=== PATIENT | male | born 1955 | race Caucasian/White ===

== ENCOUNTER 2024-02-26 00:14 | Inpatient (IN) | payer OTHER ==
[~2024-02-26] VITALS: Ht 177.8 cm; Wt 68.0 kg
[~2024-02-26 00:14] MED LIST: ATOR-1 GT; DOXY100T2 GT; ECO81 GT; ENOX40SY SUBCUT; LEVE500T9 GT; LOPE2CAP GT; NOR10 GT; SER25 GT; VALP250S16 GT
[2024-02-26 00:20] VITALS: BP_SYST 117; PULSE 95; RESP 16; TEMP 97.6; O2SAT 94
[2024-02-26 01:22] LABS: HEMOGLOBIN 14.3 g/dL (14.0-18.0); MEAN CORPUSCULAR VOLUME 89 fL (79.0-98.0); RED CELL DISTRIBUTION WIDTH 15.5 % (9.0-15.0)
[2024-02-26 01:30] LABS: BASOPHILS # (AUTO) 0.1 K/uL (0.0-0.2); BASOPHILS % (AUTO) 0.8 % (0.0-2.0); EOSINOPHILS # (AUTO) 0.2 K/uL (0.0-0.4); EOSINOPHILS % (AUTO) 2.4 % (0.0-4.0); HEMATOCRIT 40.6 % (36-54); LYMPHOCYTES # (AUTO) 1.4 K/uL (1.0-5.5); LYMPHOCYTES % (AUTO) 14.1 % (20.5-51.5); MEAN CORPUSCULAR HEMOGLOBIN 32 pg (27-31); MEAN CORPUSCULAR HGB CONC 35 % (32-36); MONOCYTES # (AUTO) 1.7 K/uL (0.0-1.0); NEUTROPHILS # (AUTO) 6.6 K/uL (1.8-7.7); NEUTROPHILS % (AUTO) 65.7 % (40.0-70.0); PLATELET COUNT (AUTO) 372 K/uL (130-430); RED BLOOD CELL COUNT(AUTO) 4.54 MIL/uL (4.2-6.2)
[2024-02-26 01:33] LABS: ALANINE AMINOTRANSFERASE 30 U/L (12-78); ALBUMIN 2.3 g/dL (3.4-4.8); ANION GAP 7 (5-15); ASPARTATE AMINOTRANSFERASE 28 U/L (10-37); CALCIUM 8.7 mg/dL (8.4-11.0); CARBON DIOXIDE 31 mmol/L (23-29); CHLORIDE 102 mmol/L (98-107); CREATININE 0.71 mg/dL (0.55-1.30); GFR AFRICAN AMERICAN 142 mL/min (>90); GFR NON AFRICAN-AMERICAN 118 mL/min (>90); GLUCOSE 101 mg/dL (74-106); POTASSIUM 4.2 mmol/L (3.5-5.1); PROTHROMBIN TIME 10.4 SECS (9.5-12.5); SODIUM SERUM 140 mmol/L (136-145); TOTAL BILIRUBIN 0.3 mg/dL (0.0-1.0); TOTAL PROTEIN, SERUM 6.4 g/dL (6.4-8.3); UREA NITROGEN, BLOOD 20 mg/dL (8-21)
[2024-02-26 01:36] LABS: BILIRUBIN,DIRECT 0.1 mg/dL (0.0-0.3)
[2024-02-26 03:34] LABS: BILIRUBIN,URINE NEGATIVE (NEGATIVE); BLOOD, URINE NEGATIVE (NEGATIVE); CLARITY/URINE CLEAR (CLEAR); COLOR,URINE YELLOW (YELLOW); GLUCOSE,URINE NEGATIVE (NEGATIVE); KETONES,URINE NEGATIVE (NEGATIVE); LEUKOCYTE ESTERASE ,URINE NEGATIVE (NEGATIVE); NITRITE, URINE NEGATIVE (NEGATIVE); PROTEIN URINE NEGATIVE (NEGATIVE); UROBILINOGEN,URINE 0.2 (0.2-1.0)
[2024-02-26] MEDS: NACL 0.9% 1,000 ML IV SCH (05:25)
[2024-02-26] MEDS ORDERED: LACT-200 GT (05:41)
[2024-02-26] MEDS ORDERED: PROP10TA10 GT (06:06)
[2024-02-26] MEDS ORDERED: MULT-1117 GT (06:06)
[2024-02-26] MEDS ORDERED: LANS30CA53 GT (06:06)
[2024-02-26] MEDS ORDERED: THIA50TA10 GT (06:06)
[2024-02-26] MEDS ORDERED: FOLI-43 GT (06:08)
[2024-02-26] MEDS ORDERED: NALOXONE HCL 0.4 MG/ML AMP (NARCAN) IVP PRN ×2 (08:15)
[2024-02-26] MEDS ORDERED: POTASSIUM CHLORIDE 20 MEQ TABLET.ER PO PRN (08:15)
[2024-02-26] MEDS ORDERED: LORazepam 2 MG/ML VIAL IVP PRN (08:15)
[2024-02-26] MEDS ORDERED: MORPHINE 2 MG/ML INJ. SYRINGE IVP PRN ×2 (08:15)
[2024-02-26] MEDS ORDERED: ONDANSETRON HCL 4 MG/2 ML VIAL IVP PRN (08:15)
[2024-02-26] MEDS ORDERED: ZOLPIDEM TARTRATE 5 MG TABLET PO PRN (08:15)
[2024-02-26] MEDS ORDERED: MUPIROCIN 2% TOPICAL OINTMENT 22 GM NS PRN (08:15)
[2024-02-26] MEDS ORDERED: MAGNESIUM SULFATE 50 ML IV PRN (08:15)
[2024-02-26] MEDS ORDERED: DOCUSATE SODIUM 100 MG CAPSULE PO PRN (08:15)
[2024-02-26] MEDS ORDERED: ACETAMINOPHEN 500 MG TABLET PO PRN ×2 (08:30)
[2024-02-26] MEDS: VALPROIC ACID ORAL SYRUP 250 MG/5 ML UDC GT SCH (08:39)
[2024-02-26] MEDS: LACTULOSE 20 GM/30 ML UDC PO SCH (09:53)
[2024-02-26] MEDS: ASPIRIN 81 MG TABLET(ECOTRIN) GT SCH (09:53)
[2024-02-26] MEDS: LANSOPRAZOLE 30 MG CAPSULE.DR GT SCH (09:54)
[2024-02-26] MEDS: levETIRAcetam 500 MG TABLET GT SCH (09:54)
[2024-02-26] MEDS: FOLIC ACID 1 MG TABLET GT SCH (09:54)
[2024-02-26] MEDS: MULTIVITAMINS TAB 1 TABLET GT SCH (09:54)
[2024-02-26] MEDS: HEPARIN SODIUM,PORCINE 5,000 UNITS/ML VIAL SUBCUT SCH (09:57)
[2024-02-26 11:47] VITALS: BP_SYST 141; PULSE 106; RESP 18; TEMP 98.1; O2SAT 96
[2024-02-26 12:26] VITALS: BP_SYST 141; PULSE 106; RESP 20; TEMP 98.1; O2SAT 95
[2024-02-26 16:08] VITALS: BP_SYST 133; PULSE 107; RESP 20; TEMP 97.5; O2SAT 95
[2024-02-26 20:00] VITALS: BP_SYST 142; PULSE 111; RESP 18; TEMP 99.5; O2SAT 94
[2024-02-26] MEDS: ATORVASTATIN 20 MG TABLET GT SCH (21:35)
[2024-02-26] MEDS: QUEtiapine FUMARATE 25 MG TABLET GT SCH (21:36)
[2024-02-26 23:29] VITALS: BP_SYST 146; PULSE 111; RESP 18; TEMP 99.3; O2SAT 95
[2024-02-27 05:32] LABS: BASOPHILS % (AUTO) 0.3 % (0.0-2.0); EOSINOPHILS # (AUTO) 0.1 K/uL (0.0-0.4); EOSINOPHILS % (AUTO) 0.5 % (0.0-4.0); HEMATOCRIT 40.7 % (36-54); LYMPHOCYTES # (AUTO) 1.4 K/uL (1.0-5.5); LYMPHOCYTES % (AUTO) 10.1 % (20.5-51.5); MEAN CORPUSCULAR HEMOGLOBIN 31 pg (27-31); MEAN CORPUSCULAR HGB CONC 34 % (32-36); MEAN CORPUSCULAR VOLUME 91 fL (79.0-98.0); MONOCYTES # (AUTO) 1.8 K/uL (0.0-1.0); MONOCYTES % (AUTO) 13.7 % (1.7-9.3); NEUTROPHILS # (AUTO) 10.1 K/uL (1.8-7.7); NEUTROPHILS % (AUTO) 75.4 % (40.0-70.0); PLATELET COUNT (AUTO) 351 K/uL (130-430); RED CELL DISTRIBUTION WIDTH 15.5 % (9.0-15.0); WHITE BLOOD COUNT (AUTO) 13.4 K/uL (4.8-10.8)
[2024-02-27 05:54] LABS: CREATININE 0.75 mg/dL (0.55-1.30); POTASSIUM 3.9 mmol/L (3.5-5.1)
[2024-02-27 08:00] VITALS: BP_SYST 128; PULSE 117; RESP 18; TEMP 98.8; O2SAT 92
[2024-02-27 12:57] VITALS: BP_SYST 118; PULSE 88; RESP 19; TEMP 98.7; O2SAT 98
[2024-02-27 18:46] VITALS: BP_SYST 122; PULSE 109; RESP 16; TEMP 99.8; O2SAT 97
[2024-02-27 20:00] VITALS: BP_SYST 116; PULSE 115; RESP 20; TEMP 100.8; O2SAT 93
[2024-02-27] MEDS: ACETAMINOPHEN 500 MG TABLET PO PRN (20:14)
[2024-02-27 21:00] VITALS: O2SAT 93
[2024-02-28 01:10] VITALS: BP_SYST 150; BP_SYST 159; PULSE 103; RESP 16; TEMP 98.2; O2SAT 95
[2024-02-28 05:42] LABS: BASOPHILS % (AUTO) 0.3 % (0.0-2.0); EOSINOPHILS # (AUTO) 0.1 K/uL (0.0-0.4); EOSINOPHILS % (AUTO) 0.5 % (0.0-4.0); HEMATOCRIT 38.3 % (36-54); LYMPHOCYTES # (AUTO) 1.2 K/uL (1.0-5.5); LYMPHOCYTES % (AUTO) 11.7 % (20.5-51.5); MEAN CORPUSCULAR HEMOGLOBIN 31 pg (27-31); MEAN CORPUSCULAR HGB CONC 34 % (32-36); MEAN CORPUSCULAR VOLUME 91 fL (79.0-98.0); MONOCYTES # (AUTO) 1.7 K/uL (0.0-1.0); NEUTROPHILS # (AUTO) 7.1 K/uL (1.8-7.7); NEUTROPHILS % (AUTO) 70.5 % (40.0-70.0); PLATELET COUNT (AUTO) 256 K/uL (130-430); RED CELL DISTRIBUTION WIDTH 15.6 % (9.0-15.0); WHITE BLOOD COUNT (AUTO) 10.1 K/uL (4.8-10.8)
[2024-02-28 06:05] LABS: CALCIUM 8.6 mg/dL (8.4-11.0); CREATININE 0.58 mg/dL (0.55-1.30); POTASSIUM 3.4 mmol/L (3.5-5.1)
[2024-02-28 07:40] VITALS: BP_SYST 131; PULSE 101; RESP 17; TEMP 99; O2SAT 96
[2024-02-28 09:00] VITALS: O2SAT 96
[2024-02-28] MEDS ORDERED: LEVE1000 PO (09:36)
[2024-02-28 12:40] VITALS: BP_SYST 142; PULSE 102; RESP 18; TEMP 98.8; O2SAT 98
[2024-02-28 16:52] VITALS: BP_SYST 131; PULSE 109; RESP 20; TEMP 97.7; O2SAT 93
[2024-02-28 16:54] VITALS: BP_SYST 135; PULSE 100; RESP 17; TEMP 98.9; O2SAT 96
== END 2024-02-28 17:20 | DRG 100 ==
LOC: SED 00:14 → STU 04:42
PROVIDERS: ADMIT General Practice; ATTEND General Practice
PROC: 4A00X4Z Measurement of Central Nervous Electrical Activity, External Approach (ICD-10-PCS; principal; 2024-02-26)
DX: G40.909 Epilepsy, unspecified, not intractable, without status epilepticus (principal); G93.41 Metabolic encephalopathy; R53.2 Functional quadriplegia; E44.0 Moderate protein-calorie malnutrition; E72.20 Disorder of urea cycle metabolism, unspecified; K76.82 Hepatic encephalopathy; R13.10 Dysphagia, unspecified; G90.9 Disorder of the autonomic nervous system, unspecified; Z87.820 Personal history of traumatic brain injury; Z74.01 Bed confinement status; Z79.899 Other long term (current) drug therapy; Z68.21 Body mass index [BMI] 21.0-21.9, adult
CPT/HCPCS: 36415; 70450-TC; 71045; 76700; 80048; 80076; 80164; 81001; 81003; 82140; 82948; 83037; 83605; 83735; 84484; 85025; 85610; 87040; 87081; 93005; 95816; 99285; G0378; J1644

== ENCOUNTER 2024-03-03 23:54 | Emergency (ER) | payer OTHER ==
[~2024-03-03] VITALS: Ht 180.3 cm; Wt 77.1 kg
[~2024-03-03 23:54] MED LIST changes: +FOLI-43 GT; +LACT-200 GT; +LANS30CA53 GT; +LEVE1000 PO; -LEVE500T9 GT; +MULT-1117 GT; +PROP10TA10 GT; +THIA50TA10 GT
[2024-03-04 00:05] VITALS: BP_SYST 132; PULSE 100; RESP 18; TEMP 98.7; O2SAT 98
[2024-03-04 01:00] LABS: BASOPHILS # (AUTO) 0.1 K/uL (0.0-0.2); BASOPHILS % (AUTO) 0.5 % (0.0-2.0); EOSINOPHILS # (AUTO) 0.1 K/uL (0.0-0.4); EOSINOPHILS % (AUTO) 0.8 % (0.0-4.0); HEMATOCRIT 45.5 % (36-54); HEMOGLOBIN 15.8 g/dL (14.0-18.0); LYMPHOCYTES # (AUTO) 1.2 K/uL (1.0-5.5); LYMPHOCYTES % (AUTO) 12.8 % (20.5-51.5); MEAN CORPUSCULAR HEMOGLOBIN 32 pg (27-31); MEAN CORPUSCULAR HGB CONC 35 % (32-36); MEAN CORPUSCULAR VOLUME 90 fL (79.0-98.0); MONOCYTES # (AUTO) 1.5 K/uL (0.0-1.0); MONOCYTES % (AUTO) 16.4 % (1.7-9.3); NEUTROPHILS # (AUTO) 6.6 K/uL (1.8-7.7); NEUTROPHILS % (AUTO) 69.5 % (40.0-70.0); PLATELET COUNT (AUTO) 336 K/uL (130-430); RED BLOOD CELL COUNT(AUTO) 5.03 MIL/uL (4.2-6.2); WHITE BLOOD COUNT (AUTO) 9.5 K/uL (4.8-10.8)
[2024-03-04 01:32] LABS: PROTHROMBIN TIME 10.2 SECS (9.5-12.5)
[2024-03-04 01:37] LABS: ANION GAP 6 (5-15); CALCIUM 9.2 mg/dL (8.4-11.0); CARBON DIOXIDE 32 mmol/L (23-29); CHLORIDE 101 mmol/L (98-107); CREATININE 0.62 mg/dL (0.55-1.30); GFR AFRICAN AMERICAN 166 mL/min (>90); GFR NON AFRICAN-AMERICAN 138 mL/min (>90); GLUCOSE 102 mg/dL (74-106); POTASSIUM 3.8 mmol/L (3.5-5.1); SODIUM SERUM 139 mmol/L (136-145); UREA NITROGEN, BLOOD 13 mg/dL (8-21)
[2024-03-04] MEDS ORDERED: PIPERACILLIN/TAZOBACTAM 4.5 GM/VIAL (ZOSYN) IV ONE (04:22)
[2024-03-04] MEDS: PIPERACILLIN/TAZO 4.5 GM in NS 100 ML IV ONE (04:40)
[2024-03-04 05:18] LABS: BILIRUBIN,URINE NEGATIVE (NEGATIVE); CLARITY/URINE CLOUDY (CLEAR); COLOR,URINE YELLOW (YELLOW); GLUCOSE,URINE NEGATIVE (NEGATIVE); KETONES,URINE NEGATIVE (NEGATIVE); LEUKOCYTE ESTERASE ,URINE NEGATIVE (NEGATIVE); NITRITE, URINE NEGATIVE (NEGATIVE); PH,URINE 6.5 (5.0-8.0); PROTEIN URINE 1+ (NEGATIVE)
[2024-03-04 05:57] LABS: BLOOD, URINE NEGATIVE (NEGATIVE)
[2024-03-04 05:58] LABS: BACTERIA,URINE None Seen /HPF (None Seen); RBC,URINE 0-3 /HPF (0-3); WBC,URINE 0-3 /HPF (0-3)
[2024-03-04 05:59] LABS: CALCIUM OXALATE CRYSTALS,UR 0-10 /HPF (None Seen)
[2024-03-04 08:40] VITALS: BP_SYST 121; PULSE 76; RESP 14; TEMP 98.1; O2SAT 99
== END 2024-03-04 08:45 | disposition short-term general hospital (02) ==
LOC: SED 23:54
DX: R41.82 Altered mental status, unspecified (principal); G93.40 Encephalopathy, unspecified; G93.5 Compression of brain; Z98.890 Other specified postprocedural states; Z79.899 Other long term (current) drug therapy; Z79.2 Long term (current) use of antibiotics
CPT/HCPCS: 99285; 80048; 81001; 85025; 85610; 85730; 87040; 84484; 36415; 96365; 70450; 71045; 93005; J2543; 81000; 81015